=== PATIENT | female | born 2000 | race Caucasian/White ===

== ENCOUNTER 2022-05-16 15:55 | Outpatient (CLI) | payer BC, SELFPAY ==
[2022-05-16 10:39] LABS: Albumin* 4.6 g/dL (3.3-5.0); Chloride* 108 mmol/L (96-114); Sodium* 139 mmol/L (135-149)
[2022-05-16 10:40] LABS: Potassium* 4.4 mmol/L (3.6-5.1)
[2022-05-16 10:41] LABS: Carbon Dioxide* 22 mmol/L (20-32); Cholesterol* 188 mg/dL (90-199); Creatinine* 0.6 mg/dL (0.5-1.5); Estimated Glomerular Filt Rate 131 ml/min
[2022-05-16 10:42] LABS: Alanine Aminotransferase* 35 U/L (4-35); Alkaline Phosphatase* 85 U/L (40-150); Aspartate Amino Transferase* 25 U/L (12-35); Bilirubin Total* 0.6 mg/dL (0.1-1.5); Blood Urea Nitrogen* 11 mg/dL (5-24); Calcium* 9.4 mg/dL (8.4-10.6); Glucose* 87 mg/dL (60-115); HDL Cholesterol* 61 mg/dL (>=50); LDL Cholesterol Calculated 113 mg/dL (<100); Triglycerides* 71 mg/dL (40-149)
== END 2022-05-16 15:56 | disposition home or self-care (01) ==
PROVIDERS: PCP Family Medicine; Visit Provider Family Medicine
DX: E78.5 Hyperlipidemia, unspecified (principal); E03.9 Hypothyroidism, unspecified; E66.9 Obesity, unspecified
CPT/HCPCS: 80053; 80061; 84443